=== PATIENT | male | born 1990 | race Caucasian/White ===

== ENCOUNTER 2017-10-20 13:13 | Emergency (ER) | payer OTHER | END 2017-10-20 13:43 | disposition home or self-care (01) | LOC: M ED 13:13 | DX: M43.6 Torticollis (principal); F90.9 Attention-deficit hyperactivity disorder, unspecified type | CPT/HCPCS: 99283 ==

== ENCOUNTER 2018-01-16 08:36 | Emergency (ER) | payer OTHER ==
[2018-01-16] MEDS: AUGMENTIN 875 MG TAB PO (09:30)
[2018-01-16] MEDS: NORCO, ANEXSIA 5/325MG TABLET (HYDROcodone/ACETAMINOPHEN) PO (09:31)
== END 2018-01-16 09:33 | disposition home or self-care (01) ==
LOC: M ED 08:36
DX: K02.9 Dental caries, unspecified (principal); E78.9 Disorder of lipoprotein metabolism, unspecified; E07.9 Disorder of thyroid, unspecified; R25.1 Tremor, unspecified
CPT/HCPCS: 99282

== ENCOUNTER 2018-08-21 14:49 | Emergency (ER) | payer OTHER ==
[~2018-08-21] VITALS: Ht 154.9 cm; Wt 61.4 kg
[~2018-08-21 14:49] MED LIST: /MESA40TAB PO; ACET1TAB15 PO; AUGM500T34 PO; AUGM875T28 PO; BUDE3CAP15 PO; CYCL10TA PO; DICY10CA69 PO; DOC-Q-LACE PO; FERR325T3 PO; FERROUS SULFATE PO; HYDR-3715 PO; IBUP-1022 PO; LEVOTHYROXINE PO; LORTTAB5 PO; NORC5TAB PO; NORCOTAB PO; PENT500C4 PO; PERCTAB PO; PRED10TA2 PO; PRED50TA2 PO; PROM-190 PO; PROT1TAB2 PO; PROTPAK PO; VITA500C24 PO; ZOFR4SOL PO
[2018-08-21] MEDS ORDERED: KETOROLAC 60 MG/2 ML VIAL (J1885) IM ONE (15:30)
[2018-08-21] MEDS ORDERED: METHOCARBAMOL 500 MG TAB PO ONE (15:30)
[2018-08-21] MEDS ORDERED: ROBA500T PO (16:03)
[2018-08-21] MEDS ORDERED: NAPR-885 PO (16:03)
[2018-08-21 16:14] VITALS: BP 132/73
== END 2018-08-21 16:24 | disposition home or self-care (01) ==
LOC: M ED 14:49
DX: S46.812A Strain of other muscles, fascia and tendons at shoulder and upper arm level, left arm, initial encounter (principal); W18.40XA Slipping, tripping and stumbling without falling, unspecified, initial encounter; Y92.9 Unspecified place or not applicable; Y93.9 Activity, unspecified; Y99.9 Unspecified external cause status; E78.5 Hyperlipidemia, unspecified; F90.8 Attention-deficit hyperactivity disorder, other type; F41.9 Anxiety disorder, unspecified; K50.919 Crohn's disease, unspecified, with unspecified complications; R25.1 Tremor, unspecified; Z79.899 Other long term (current) drug therapy
CPT/HCPCS: 96372; 99283; J1885

== ENCOUNTER 2018-09-03 09:16 | Emergency (ER) | payer OTHER ==
[~2018-09-03] VITALS: Ht 154.9 cm; Wt 60.9 kg
[2018-09-03 09:16] VITALS: BP 143/75
[~2018-09-03 09:16] MED LIST changes: +NAPR-885 PO; +ROBA500T PO
[2018-09-03] MEDS ORDERED: BUPIVACAINE HCL 0.25% 10 ML VIAL SC ONE (09:30)
[2018-09-04] MEDS ORDERED: LEVO75TA4 (08:56)
[2018-09-04] MEDS ORDERED: PERC5TAB12 PO (11:11)
== END 2018-09-03 10:14 | disposition home or self-care (01) ==
LOC: M ED 09:16
DX: S46.912A Strain of unspecified muscle, fascia and tendon at shoulder and upper arm level, left arm, initial encounter (principal); X58.XXXA Exposure to other specified factors, initial encounter; Y92.89 Other specified places as the place of occurrence of the external cause; E78.5 Hyperlipidemia, unspecified; F90.9 Attention-deficit hyperactivity disorder, unspecified type; G25.0 Essential tremor; Z87.19 Personal history of other diseases of the digestive system; Z79.899 Other long term (current) drug therapy

== ENCOUNTER 2018-09-04 08:41 | Emergency (ER) | payer OTHER ==
[~2018-09-04] VITALS: Ht 154.9 cm; Wt 61.4 kg
[2018-09-04] MEDS ORDERED: LEVO75TA4 (08:56)
[2018-09-04] MEDS ORDERED: PERCOCET 5MG/325MG TAB PO ONE (09:30)
--- NOTE | 2018-09-04 10:31 | REP ---
Left upper extremity duplex venous ultrasound: History: There is an arm pain. Findings: The left internal jugular, axillary, brachial, basilic, and cephalic veins are anechoic and compressible in the left upper extremity. Color flow imaging is homogeneous. Spectral Doppler interrogation is unremarkable. There is no evidence of left upper extremity venous thrombosis. Impression: Negative left upper extremity duplex venous ultrasound. No evidence of venous thrombosis. Electronically Signed by Saeed Hightower MD 09/04/2018 10:22 A
[2018-09-04] MEDS ORDERED: PERC5TAB12 PO (11:11)
[2018-09-04 11:29] VITALS: BP 138/89
== END 2018-09-04 11:31 | disposition home or self-care (01) ==
LOC: M ED 08:41
DX: S46.812A Strain of other muscles, fascia and tendons at shoulder and upper arm level, left arm, initial encounter (principal); X58.XXXA Exposure to other specified factors, initial encounter; Y92.9 Unspecified place or not applicable; Y93.9 Activity, unspecified; Y99.9 Unspecified external cause status; E78.5 Hyperlipidemia, unspecified; Z79.899 Other long term (current) drug therapy

== ENCOUNTER 2019-07-19 13:41 | Emergency (ER) | payer OTHER ==
[~2019-07-19] VITALS: Ht 154.9 cm; Wt 61.5 kg
[~2019-07-19 13:41] MED LIST changes: +LEVO75TA4; +PERC5TAB12 PO
[2019-07-19 13:42] VITALS: BP 170/92
[2019-07-19] MEDS ORDERED: KETO10TAB PO (14:39)
[2019-07-19] MEDS ORDERED: AUGM875T28 PO (14:39)
[2019-07-19] MEDS ORDERED: AUGMENTIN 875 MG TAB PO ONE (14:45)
== END 2019-07-19 14:52 | disposition home or self-care (01) ==
LOC: M ED 13:41
DX: K02.9 Dental caries, unspecified (principal)

== ENCOUNTER 2019-10-26 17:40 | Emergency (ER) | payer OTHER ==
[~2019-10-26] VITALS: Ht 152.4 cm; Wt 62.5 kg
[~2019-10-26 17:40] MED LIST changes: +CYCL-707 PO; -CYCL10TA PO; +KETO10TAB PO
[2019-10-26] MEDS ORDERED: ERYTOIN8 OP (20:09)
[2019-10-26 20:37] VITALS: BP 127/81
== END 2019-10-26 20:37 | disposition home or self-care (01) ==
LOC: M ED 17:40
DX: H10.9 Unspecified conjunctivitis (principal); F90.8 Attention-deficit hyperactivity disorder, other type; K50.90 Crohn's disease, unspecified, without complications; E03.9 Hypothyroidism, unspecified; E78.5 Hyperlipidemia, unspecified; R25.1 Tremor, unspecified; Z87.81 Personal history of (healed) traumatic fracture

== ENCOUNTER → 2019-11-09 | Outpatient (REF) | payer OTHER, MEDICAID ==
[~2019-11-09] MED LIST changes: +ERYTOIN8 OP
[2019-11-09 18:12] LABS: ALT/SGPT 32 U/L (12-78); BILIRUBIN,TOTAL 0.5 MG/DL (0.2-1.0); BLOOD UREA NITROGEN 9 MG/DL (7-18); CALCIUM LEVEL 8.9 MG/DL (8.5-10.1); CARBON DIOXIDE LEVEL 33 MEQ/L (21-32); CHLORIDE LEVEL 105 MEQ/L (98-107); CHOLESTEROL LEVEL 117 MG/DL (<200); CHOLESTEROL RISK RATIO 2.785 (<5); CREATININE FOR GFR 0.82 MG/DL (0.70-1.30); GLOMERULAR FILTRATION RATE > 60.0 (>60); GLUCOSE, FASTING 81 MG/DL (70-100); HDL CHOLESTEROL 42 MG/DL (>40); LDL CHOLESTEROL 50 MG/DL (<100); NON-HDL-C 75 MG/DL; SODIUM LEVEL 140 MEQ/L (136-145); TOTAL PROTEIN 7.7 GM/DL (6.4-8.2); TRIGLYCERIDES LEVEL 123 MG/DL (<150)
== END ==
LOC: M LAB REF 16:22
PROVIDERS: ATTEND Family Medicine Addiction Medicine
DX: E03.9 Hypothyroidism, unspecified (principal)

== ENCOUNTER 2019-11-30 18:32 | Emergency (ER) | payer MEDICAID, OTHER ==
[~2019-11-30] VITALS: Ht 152.4 cm; Wt 64.7 kg
[2019-11-30] MEDS ORDERED: LEVO100T5 (18:40)
[2019-11-30 19:12] LABS: HEMATOCRIT 44.9 % (42.0-52.0); MEAN CORPUSCULAR HEMOGLOBIN 29.4 pg (27.0-33.0); MEAN CORPUSCULAR HGB CONC 33.4 g/dl (32.0-36.5); PLATELET COUNT, AUTOMATED 326 10^3/uL (150-450); WHITE BLOOD COUNT 12.2 10^3/uL (4.0-10.0)
[2019-11-30] MEDS ORDERED: MAGIC MOUTHWASH SUSPENSION BTL SSP STA (19:24)
[2019-11-30] MEDS ORDERED: AUGMENTIN 875 MG TAB PO ONE (19:30)
[2019-11-30] MEDS ORDERED: IBUPROFEN 600MG TAB PO ONE (19:30)
[2019-11-30] MEDS ORDERED: MAGICMW SSP (19:33)
[2019-11-30] MEDS ORDERED: AUGM875T28 PO (19:33)
[2019-11-30] MEDS ORDERED: IBUP-1022 PO (19:33)
[2019-11-30 19:45] VITALS: BP 136/86
== END 2019-11-30 19:47 | disposition home or self-care (01) ==
LOC: M ED 18:32
DX: K04.7 Periapical abscess without sinus (principal)

== ENCOUNTER → 2020-04-03 | Outpatient (REF) | payer OTHER ==
[~2020-04-03] MED LIST changes: +LEVO100T5; +MAGICMW SSP
[2020-04-03 12:02] LABS: BASO # 0.1 10^3/uL (0.0-0.2); BASO % 0.9 % (0.0-1.0); EOS # 0.3 10^3/uL (0.0-0.5); EOS % 3.9 % (0.0-3.0); HEMOGLOBIN 15.7 g/dl (13.5-17.5); LYMPH # 2.3 10^3/uL (1.5-5.0); LYMPH % 28.5 % (24.0-44.0); MEAN CORPUSCULAR HEMOGLOBIN 27.7 pg (27.0-33.0); MEAN CORPUSCULAR HGB CONC 32.7 g/dl (32.0-36.5); MEAN CORPUSCULAR VOLUME 84.7 fl (80.0-96.0); MONO # 0.6 10^3/uL (0.0-0.8); MONO % 7.2 % (0.0-5.0); NEUTROPHILS # 4.7 10^3/uL (1.5-8.5); NEUTROPHILS % 59.2 % (36.0-66.0); PLATELET COUNT, AUTOMATED 349 10^3/uL (150-450); RED BLOOD COUNT 5.67 10^6/uL (4.30-6.10); WHITE BLOOD COUNT 7.9 10^3/uL (4.0-10.0)
[2020-04-03 13:03] LABS: CHOLESTEROL RISK RATIO 2.875 (<5); THYROID STIMULATING HORMONE 6.19 uIU/ML (0.358-3.740)
== END ==
LOC: M LAB REF 11:24
PROVIDERS: ATTEND Family Medicine Addiction Medicine
DX: E03.9 Hypothyroidism, unspecified (principal)

== ENCOUNTER 2020-12-09 19:05 | Emergency (ER) | payer OTHER ==
[~2020-12-09] VITALS: Ht 152.4 cm; Wt 69.1 kg
[2020-12-09] MEDS ORDERED: OLOPATADINE 0.1% OPHTH SOL 5ML(PATANOL) OU STA (20:48)
[2020-12-09] MEDS ORDERED: CETIRIZINE (ZyrTEC) 10 MG TAB PO ONE (20:50)
[2020-12-09] MEDS ORDERED: CETI10CH PO (20:59)
[2020-12-09] MEDS ORDERED: OLOP0.1D OP (20:59)
[2020-12-09 21:53] VITALS: BP 129/91
== END 2020-12-09 21:57 | disposition home or self-care (01) ==
LOC: M ED 19:05
DX: H10.13 Acute atopic conjunctivitis, bilateral (principal); E78.5 Hyperlipidemia, unspecified; K50.90 Crohn's disease, unspecified, without complications

== ENCOUNTER 2020-12-29 00:51 | Emergency (ER) | payer OTHER ==
[~2020-12-29] VITALS: Ht 152.4 cm; Wt 67.2 kg
[~2020-12-29 00:51] MED LIST changes: +CETI10CH PO; +OLOP0.1D OP
--- NOTE | 2020-12-29 08:29 | REPVR ---
PROCEDURE INFORMATION: Exam: CT Head Without Contrast Exam date and time: 12/29/2020 7:41 AM Age: 30 years old Clinical indication: Dizziness TECHNIQUE: Imaging protocol: Computed tomography of the head without contrast. Radiation optimization: All CT scans at this facility use at least one of these dose optimization techniques: automated exposure control; mA and/or kV adjustment per patient size (includes targeted exams where dose is matched to clinical indication); or iterative reconstruction. COMPARISON: No relevant prior studies available. FINDINGS: Brain: Normal. No hemorrhage. Unremarkable white matter. No mass effect. Cerebral ventricles: No ventriculomegaly. Paranasal sinuses: Visualized sinuses are unremarkable. No fluid levels. Mastoid air cells: Visualized mastoid air cells are well aerated. Bones/joints: Unremarkable. No acute fracture. Soft tissues: Unremarkable. IMPRESSION: No acute intracranial abnormality. Electronically signed by: Briana Baxter On 12/29/2020 08:29:28 AM
[2020-12-29] MEDS ORDERED: NS 1,000 ML IV ONE (08:55)
[2020-12-29 09:22] LABS: BASO # 0.1 10^3/uL (0.0-0.2); EOS # 0.1 10^3/uL (0.0-0.5); EOS % 1.4 % (0.0-3.0); HEMATOCRIT 47.5 % (42.0-52.0); HEMOGLOBIN 15.9 g/dl (13.5-17.5); LYMPH # 2.5 10^3/uL (1.5-5.0); LYMPH % 26.2 % (24.0-44.0); MEAN CORPUSCULAR HEMOGLOBIN 29.1 pg (27.0-33.0); MEAN CORPUSCULAR HGB CONC 33.5 g/dl (32.0-36.5); MEAN CORPUSCULAR VOLUME 86.8 fl (80.0-96.0); MONO # 0.7 10^3/uL (0.0-0.8); MONO % 6.9 % (2.0-8.0); NEUTROPHILS % 64.2 % (36.0-66.0); PLATELET COUNT, AUTOMATED 304 10^3/uL (150-450); RED BLOOD COUNT 5.47 10^6/uL (4.30-6.10); WHITE BLOOD COUNT 9.4 10^3/uL (4.0-10.0)
[2020-12-29 09:53] LABS: ALBUMIN 4.1 GM/DL (3.2-5.2); ALT/SGPT 25 U/L (12-78); BILIRUBIN,TOTAL 0.5 MG/DL (0.2-1.0); BLOOD UREA NITROGEN 9 MG/DL (7-18); CALCIUM LEVEL 8.8 MG/DL (8.5-10.1); CARBON DIOXIDE LEVEL 30 MEQ/L (21-32); CHLORIDE LEVEL 104 MEQ/L (98-107); CK-MB VALUE MASS < 1.0 NG/ML (<3.6); CPK CREATINE PHOSPHOKINASE 113 U/L (39-308); CREATININE FOR GFR 0.84 MG/DL (0.70-1.30); GLOMERULAR FILTRATION RATE > 60.0 (>60); GLUCOSE, FASTING 89 MG/DL (70-100); MB/CK RELATIVE INDEX 0.88 (< OR =4); POTASSIUM SERUM 4.5 MEQ/L (3.5-5.1); SODIUM LEVEL 138 MEQ/L (136-145); TROPONIN I < 0.02 NG/ML (< 0.10)
[2020-12-29 10:25] VITALS: BP 154/94
[2020-12-29 10:57] LABS: APPEARANCE, URINE CLEAR (CLEAR); BACTERIA, URINE AUTO NEGATIVE (NEGATIVE); BILIRUBIN, URINE AUTO NEGATIVE (NEGATIVE); BLOOD, URINE BLOOD NEGATIVE (NEGATIVE); COLOR, URINE YELLOW (YELLOW); GLUCOSE, URINE (UA) AUTO NEGATIVE (NEGATIVE); KETONE, URINE AUTO NEGATIVE (NEGATIVE); LEUKOCYTE ESTERASE, URINE AUTO NEGATIVE (NEGATIVE); MUCUS, URINE SMALL (NEGATIVE); NITRITE, URINE AUTO NEGATIVE (NEGATIVE); PROTEIN, URINE AUTO NEGATIVE (NEGATIVE); RBC, URINE AUTO 2 /HPF (0-3); SPECIFIC GRAVITY URINE AUTO 1.023 (1.002-1.035); SQUAMOUS EPITHELIAL CELL UR AU 0 /HPF (0-6); UROBILINOGEN, URINE AUTO 0.2 mg/dL (0.0-2.0); WBC, URINE AUTO 7 /HPF (0-3)
--- NOTE | 2020-12-30 09:01 | ECGEPIP ---
[facility] - ED Test Date: 2020-12-29 Pat Name: CYNDI MENDOZA Department: Room: - Gender: Male [employer]ist: MICHAEL : 1990 Requested By: SOFIA Giles PA-C Order Number: [id number] Reading MD: Awilda Rocha Measurements Intervals [place] Rate: 64 P: 48 VA: 220 QRS: 71 QRSD: 92 T: 9 QT: 382 QTc: 394 Interpretive Statements Sinus rhythm with 1st degree AV block irbbb NSTTW abnormalities decreased rate 02/28/15 Electronically Signed on 12-30-2020 9:00:53 EDT by Awilda Rocha
== END 2020-12-29 10:34 | disposition home or self-care (01) ==
LOC: M ED 00:51
DX: R42 Dizziness and giddiness (principal); I45.19 Other right bundle-branch block; I44.0 Atrioventricular block, first degree; R94.31 Abnormal electrocardiogram [ECG] [EKG]; E03.9 Hypothyroidism, unspecified; E78.5 Hyperlipidemia, unspecified; F41.9 Anxiety disorder, unspecified; Z79.890 Hormone replacement therapy; Z79.899 Other long term (current) drug therapy

== ENCOUNTER → 2022-12-27 | Outpatient (REF) | payer OTHER ==
[~2022-12-27] MED LIST changes: -OLOP0.1D OP; +OLOP5DRO17 OP
[2022-12-27 13:42] LABS: ALKALINE PHOSPHATASE 84 U/L (46-116); ALT/SGPT 21 U/L (7.0-40); AST/SGOT 13 U/L (<34); BILIRUBIN,TOTAL 0.5 MG/DL (0.3-1.2); BLOOD UREA NITROGEN 8 MG/DL (9-23); CARBON DIOXIDE LEVEL 28 MMOL/L (20-31); CHLORIDE LEVEL 104 MMOL/L (98-107); CHOLESTEROL LEVEL 117 MG/DL (<200); CREATININE FOR GFR 0.78 MG/DL (0.70-1.30); GLOMERULAR FILTRATION RATE > 60.0 (>60); GLUCOSE, FASTING 78 MG/DL (60-100); HDL CHOLESTEROL 35.4 MG/DL (>40); LDL CHOLESTEROL 50.4 MG/DL (<100); NON-HDL-C 81.6 MG/DL; POTASSIUM SERUM 4.1 MMOL/L (3.5-5.1); SODIUM LEVEL 140 MMOL/L (136-145); THYROID STIMULATING HORMONE 8.692 uIU/ML (0.55-4.78); TOTAL PROTEIN 6.9 G/DL (5.7-8.2); TRIGLYCERIDES LEVEL 156 MG/DL (<150)
== END ==
LOC: M LAB REF 12:20
PROVIDERS: ATTEND Family Medicine Addiction Medicine
DX: E03.9 Hypothyroidism, unspecified (principal)